=== PATIENT | female | born 1990 | race Caucasian/White ===

== ENCOUNTER 2021-11-24 12:45 | Inpatient (IN) ==
--- NOTE | 2021-11-24 13:55 | History & Physical Report ---
Date of Service November 24, 2021 Assessment & Plan (1) : Plan: 31 y/o at 40 2/7 wga presents w/ ctx VSS, initial BPs elevated but checked during ctx, normal when not vilma Fetus cat 1 Contractions - some progression since , ctx seem spaced so will recheck in few hours and ambulate in b/w GBS neg History of Present Illness Chief Complaint: Contractions Primary Care Provider: Kelsie Desean 31 y/o at 40 2/7 wga presents w/ c/o ctx q3-5 min since around 930. Unsure if they are still the same frequency but still very painful. +FM; denies LOF, VB PNI: None Past FLUE CLEANER Hx: SAB x 3, G4 current q28-30d cycles 04/2021 neg cotest Denies hx STIs Allergies Allergy/AdvReac Type Severity Reaction Status Date / Time latex Allergy rash, Verified 11/22/21 10:27 itching Home Medications Medication Instructions Recorded Confirmed Type prenat.vits,jean-claude,hly-vlrm-tbyef PO 10/02/20 11/22/21 History Patient History Medical History History of chicken pox Surgical History S/P tonsillectomy and adenoidectomy Family History Mother Breast cancer Hyperchloremia Father Diabetes Denies family history of Ovarian cancer Colorectal cancer Social History Smoking Status: Never smoker Hx Alcohol Use: No Hx Substance Use: Yes Preferred Language: Portuguese Communication Ability: Effective Is/It Project Manager Required: No Beliefs That Will Affect Care: None marital status: marital status details: Jc Nunez (31) [phone] Current Living Situation: Spouse Current Living Situation Comment: lives with spouse, 2 dogs current occupational status: employed 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) Vital Signs (Past 12 Hours) Vital Signs Temp Pulse Resp BP 11/24/21 13:48 81 137/83 11/24/21 13:39 86 152/84 H 11/24/21 13:05 98.4 F 20 11/24/21 12:53 115 H 145/87 H Laboratory Results OB Labs: Blood Type O Positive 04/17/21 Antibody Screen NEGATIVE 04/17/21 Hemoglobin 12.5 g/dL (12.0-16.0) 08/30/21 Hematocrit 36.1 % (37-47) L 08/30/21 Mean Corpuscular Volume 87.2 fL (80-100) 04/17/21 Platelet Count 246 K/uL (130-400) 04/17/21 Rubella IgG Antibody Immune (Immune) 04/17/21 Rapid Plasma Reagin Nonreactive (Nonreactive) 04/17/21 Hepatitis B Surface Antigen Neg (Neg) 04/17/21 HIV (1&2) Ab and P24 Ag, 4th Gener Neg (Neg) 04/17/21 Glucose 1 Hour 50 gm Load 107 mg/dl (70-130) 08/30/21 OB Optional Labs: Chlamydia trachomatis RNA NOT DETECTED (NOT DETECTED) 04/17/21 Neisseria gonorrhoeae RNA NOT DETECTED (NOT DETECTED) 04/17/21 Thyroid Stimulating Hormone (TSH) 2.03 uIU/mL (0.30-4.50) 11/15/20 Labs Reviewed: declines AFP - sln declines genetics/cf/sma=--akh GBS neg Diagnostic Findings R lat/post plac Coding Level of Care Code None Diagnoses Z34.90
[2021-11-24] MEDS ORDERED: OXYTOCIN 30 UNITS/500 ML BAG IV PRN (15:22)
--- NOTE | 2021-11-24 15:26 | Labor Progress Brief Note ---
Date of Service November 24, 2021 Subjective Still rating ctx 05/26 Assessment & Plan (1) : Plan: 31 y/o at 40 2/7 wga presents w/ ctx VSS, initial BPs elevated but checked during ctx, normotensive now Fetus cat 1 Contractions - progression noted after 1.5 hrs, will admit for labor and obtain covid test GBS neg Epidural PRN Physical Exam Genitourinary: Manual OB Exam: + cervical dilation (4-5), + cervical effacement 70% and + station -2 OB Exam Monitor Tracing: + external FHT monitor used, + external uterine monitor used (q5-6) and + category I (135/mod/+accel/-decel) Results & Data ([facility]) Vital Signs (Past 12 Hours) Vital Signs Temp Pulse Resp BP 11/24/21 13:53 78 131/81 11/24/21 13:48 81 137/83 11/24/21 13:39 86 152/84 H 11/24/21 13:05 98.4 F 20 11/24/21 12:53 115 H 145/87 H Coding Level of Care Code None Diagnoses Z34.90
[2021-11-24 15:39] LABS: Hematocrit (blood only) 40.9 % (37-47); Hemoglobin 14.1 g/dL (12.0-16.0); Mean Corpuscular Hemoglobin 30.4 pg (25-34); Mean Corpuscular Hgb Conc 34.5 g/dL (32-36); Mean Corpuscular Volume 88.1 fL (80-100); Mean Platelet Volume 11.4 fL (7.4-10.4); Platelet Count 198 K/uL (130-400); RDW Coefficient of Variation 13.5 % (11.5-14.5); RDW Standard Deviation 43.1 fL (36.4-46.3); Red Blood Count 4.64 M/uL (4.2-5.4); White Blood Count 13.52 K/uL (4.8-10.8)
[2021-11-24] MEDS: LACTATED RINGER'S 1,000 ML IV PRN ×2 (17:42→20:30)
--- NOTE | 2021-11-24 17:42 | Labor Progress Brief Note ---
Date of Service November 24, 2021 Subjective Ctx more painful Assessment & Plan (1) : Plan: 31 y/o at 40 2/7 wga presents w/ ctx VSS, BPs mild during ctx again and pt notes she is very anxious. If continues, will get pet lab Fetus cat 1 Contractions - continued progression, now s/p arom. Continue expectant management GBS neg Epidural PRN Admission and Anticipated Discharge Date Admission Date: November 24, 2021 Physical Exam Genitourinary: Manual OB Exam: + cervical dilation 5 cm, + cervical effacement 70%, + station -1 and + amniotic fluid (AROM clear) OB Exam Monitor Tracing: + external FHT monitor used, + external uterine monitor used (q5-6) and + category I (135/mod/+accel/-decel) Results & Data ([facility]) Vital Signs (Past 12 Hours) Vital Signs Temp Pulse Resp BP 11/24/21 17:33 105 H 142/85 H 11/24/21 17:27 122 H 149/100 H 11/24/21 13:53 78 131/81 11/24/21 13:48 81 137/83 11/24/21 13:39 86 152/84 H 11/24/21 13:05 98.4 F 20 11/24/21 12:53 115 H 145/87 H Coding Level of Care Code None Diagnoses Z34.90
[2021-11-24] MEDS ORDERED: SODIUM CHLORIDE 0.9% INJ 10 ML VIAL ONE (18:19)
[2021-11-24] MEDS ORDERED: BUPIVACAINE 0.25% 30 ML VIAL ONE (18:19)
[2021-11-24] MEDS ORDERED: ePHEDrine sulfate 50 MG/ML AMP ONE (18:19)
[2021-11-24] MEDS ORDERED: fentaNYL citrate 100 MCG/2 ML VIAL ONE (18:20)
[2021-11-24] MEDS ORDERED: fentaNYL 2MCG/ML ROPIVACAINE 1.25MG/ML 100 ML BAG EPI ONE (18:20)
[2021-11-24] MEDS ORDERED: NALBUPHINE HCL INJ 10 MG/ML AMP IV PRN (18:25)
[2021-11-24] MEDS ORDERED: fentaNYL 2MCG/ML ROPIVACAINE 1.25MG/ML 100 ML BAG EPI PRN (18:25)
[2021-11-24] MEDS ORDERED: ONDANSETRON INJ 2 MG/ML 2 ML VIAL IV PRN (18:25)
[2021-11-24] MEDS ORDERED: NALOXONE HCL 0.4 MG/1 ML VIAL/CARP IV PRN (18:25)
[2021-11-24] MEDS ORDERED: NALOXONE HCL 1 MG in SODIUM CHLORIDE 0.9% 1000ML 1,000 ML IV PRN (18:25)
[2021-11-24] MEDS ORDERED: diphenhydrAMINE 50 MG/ML VIAL IV PRN (18:25)
[2021-11-24] MEDS ORDERED: ePHEDrine sulfate 50 MG/ML AMP IV PRN (18:25)
--- NOTE | 2021-11-24 18:25 | Anesthesiology Consultation ---
Date of Service November 24, 2021 Assessment & Plan (1) Encounter for pre-operative examination: Chart Review Chart Review: Acceptable Risk for Labor Epidural Consults Requested none ASA ASA2 Proposed Anesthesia Anesthesia Type: Labor Epidural Risk / Benefits Reviewed With: PT / POA / Parent / Guardian, Accepts Plan and Informed Consent Obtained History Height/Weight Height: 5 ft 6 in Weight: 82.1 kg Allergies Allergy/AdvReac Type Severity Reaction Status Date / Time latex Allergy rash, Verified 11/22/21 10:27 itching Medications Home Medications Medication Instructions Recorded Confirmed Last Taken prenat.vits,jean-claude,pbc-cbvq-eiqbp PO 10/02/20 11/22/21 Unknown Active Medications Generic Name Dose Route Start Last Admin Trade Name Freq PRN Reason Stop Dose Admin Lactated Ringer's 1,000 mls @ 125 mls/hr 11/24/21 15:22 11/24/21 17:42 Lr IV 11/26/21 15:21 125 mls/hr .Q8H PRN Administration L&D Protocol Protocol Past Medical History Medical History History of chicken pox Exercise / Class Metabolic Activity II 4-5 Yardwork/Stairs/Walk up hill Past Family History Family History Mother Breast cancer Hyperchloremia Father Diabetes Denies family history of Ovarian cancer Colorectal cancer Past Surgical History Surgical History S/P tonsillectomy and adenoidectomy Past Anesthesia History No Hx of Anesthesia Complications and No Family Hx of Anesthesia Complications History of PONV No Hx of PONV and No Hx of Motion Sickness Social History Smoking Status: Never smoker Hx Alcohol Use: No Hx Substance Use: Yes substance use type: does not use Physical Exam Vital Signs Last Vital Signs Temp 98.4 F 11/24/21 13:05 Pulse 105 H 11/24/21 17:33 Resp 20 11/24/21 13:05 BP 142/85 H 11/24/21 17:33 ENMT Mouth: no dentition abnormality Thyromental Distance: > or= 3.5 Finger Breadths Mallampati Class: II Neck normal visual inspection Respiratory normal respiratory effort Auscultation: lungs clear to auscultation bilaterally Cardiovascular Rate/Rhythm: regular rate and regular rhythm Testing Laboratory Results 11/24/21 15:30
--- NOTE | 2021-11-25 00:10 | Delivery Summary ---
Vaginal Delivery Summary Date of Service November 24, 2021 Vaginal Delivery Summary and 2nd Degree LAC PREOPERATIVE DIAGNOSIS: 1. Single intrauterine at 40 2/7 wga 2. Labor POSTOPERATIVE DIAGNOSIS: 1. Single intrauterine at 40 2/7 wga 2. Labor 3. Delivered PROCEDURE: 1. Normal spontaneous vaginal delivery. SURGEON: Kay Merritt MD ANESTHESIA: Epidural. ESTIMATED BLOOD LOSS: 300 mL FLUIDS: Continuous LR. URINE OUTPUT: None. COMPLICATIONS: None. CONDITION: Stable. INDICATIONS: 31 y/o at 40 2/7 wga presented with contractions increasing in frequency and intensity. Denied LOF, VB. On arrival she was 3-4 cm, after approximately 1 hour had made change to 4-5cm and was admitted. She underwent artificial rupture of membranes and received an epidural for pain control. She progressed to complete and desired to push. FINDINGS: A viable female , weight pending with Apgars of 8 and 9 at 1 and 5 minutes respectively. SPECIMEN: Cord blood OPERATIVE REPORT: The patient progressed to 10 cm, 100% effaced and +2 station, pushed over intact perineum with anesthesia to deliver a viable female , weight and Apgars as above. Head of delivered in MICKEY position. Loose nuchal cord was noted and delivered through. Body and shoulders were delivered without difficulty. was delivered to maternal abdomen and nursing staff. Delayed cord clamping was performed for 60 seconds. Cord was clamped and cut. Cord blood was obtained. Placenta delivered spontaneously intact with 3-vessel cord. IV oxytocin and fundal massage were given for excellent hemostasis. Vagina, cervix, perineum, and placenta were inspected. A second degree and right labial laceration were noted and repaired in the usual fashion using 3-0 and 4-0 vicryl respectively. Sponge and needle counts correct x2. No sponges were left behind. Mother and stable in immediate period. [facility] Vaginal Delivery Charge Vaginal Delivery Codes: 86801 global code for the antepartum, delivery, and post- Delivery Type Details: and 2nd Degree LAC
[2021-11-25] MEDS ORDERED: SUPERCREAM 0.870% 15 GM JAR EXT PRN (00:24)
[2021-11-25] MEDS ORDERED: BENZOCAINE 20% AER SPR 82.5 GM CAN EXT PRN (00:24)
[2021-11-25] MEDS ORDERED: ACETAMINOPHEN 325 MG TAB PO PRN (00:24)
[2021-11-25] MEDS ORDERED: OXYTOCIN 30 UNITS/500 ML BAG IV PRN (00:24)
[2021-11-25] MEDS ORDERED: HYDROCORTISONE ACETATE 25 MG SUPP PR PRN (00:24)
--- NOTE | 2021-11-25 00:25 | Anesthesia Procedure Note ---
Date of Service November 25, 2021 Anesthesia Post Epidural Note Vital Signs Vital Signs: Temp Pulse Resp BP Pulse Ox 36.6 C 79 18 162/72 H 98 11/24/21 22:12 11/25/21 00:22 11/24/21 23:15 11/25/21 00:22 11/24/21 23:59 Pain Intensity Lower Abdomen: Pain Intensity: 7 Notes Mental Status: alert / awake / arousable Nausea / Vomiting: adequately controlled Pain: adequately controlled Airway Patency, RR, SpO2: stable & adequate BP & HR: stable & adequate Hydration State: stable & adequate Neuraxial Anesthesia: was administered and sensory block is resolving Anesthetic Complications: no major complications apparent and Pt Satisfied with anesthetic care Epidural: Removed without complications and With tip intact
--- NOTE | 2021-11-25 07:55 | Obstetrical Progress Note ---
Date of Service November 25, 2021 Assessment & Plan (1) state: 31 yo PP1 from , doing well -Meeting all pp milestones. BPs were intermittently mild range yesterday but occurred during contractions, periods of high anxiety, or when pt had just moved on to the cuff and all normalized so did not feel labs indicated at that time and have been normal since. Will order labs if become elevated again -O+/rubella immune/ -f/u 6 weeks for appt, continue routine pp care Subjective Ambulation: ambulating normally Voiding: no voiding problems Passing Gas:: Yes Diet Tolerance:: regular diet Lochia:: Small Feeding Type:: breast feeding Pain well managed with medication Review of Systems Denies fevers, chills, n/v, MARIA, CP, SOB Physical Exam Constitutional WD/WN, vitals as above no acute distress Respiratory normal respiratory effort, lungs clear to auscultation Cardiovascular RRR, no murmur, no edema Gastrointestinal (Abdomen) Percussion/Palpation: abdomen soft; abdomen nontender fundus firm at umbilicus and NT Musculoskeletal BLE symmetric, nonerythematous, nontender Results & Data ([facility]) Vital Signs (Past 12 Hours) Vital Signs Temp Pulse Pulse Resp BP BP Pulse Ox 11/25/21 03:10 98.2 F 87 16 123/80 11/25/21 02:09 90 128/65 11/25/21 02:05 18 11/25/21 02:02 88 123/66 11/25/21 01:52 93 H 127/67 11/25/21 01:42 93 H 124/64 11/25/21 01:35 18 11/25/21 01:32 97 H 136/75 11/25/21 01:22 98 H 132/73 11/25/21 01:09 90 135/69 11/25/21 01:05 18 11/25/21 01:02 89 133/66 11/25/21 00:52 99 H 147/74 H 11/25/21 00:50 18 11/25/21 00:42 98 H 140/71 11/25/21 00:39 81 134/63 11/25/21 00:35 18 11/25/21 00:22 79 162/72 H 11/25/21 00:20 18 11/25/21 00:12 92 H 145/67 H 11/25/21 00:05 98.6 F 18 11/25/21 00:02 92 H 145/72 H 11/24/21 23:59 96 H 98 11/24/21 23:54 93 H 97 11/24/21 23:53 95 H 140/67 11/24/21 23:49 93 H 96 11/24/21 23:44 106 H 96 11/24/21 23:39 105 H 96 11/24/21 23:35 116 H 88 L 11/24/21 23:34 112 H 97 11/24/21 23:29 131 H 97 11/24/21 23:24 116 H 97 11/24/21 23:23 129 H 140/63 11/24/21 23:19 147 H 98 11/24/21 23:15 18 11/24/21 23:14 120 H 150/88 H 11/24/21 23:13 122 H 97 11/24/21 23:08 105 H 96 11/24/21 23:03 84 94 11/24/21 22:58 77 96 11/24/21 22:54 83 94 11/24/21 22:53 85 116/78 95 11/24/21 22:48 81 94 11/24/21 22:46 81 94 11/24/21 22:45 18 11/24/21 22:43 90 94 11/24/21 22:40 79 94 11/24/21 22:38 86 130/71 96 11/24/21 22:33 81 95 11/24/21 22:32 79 94 11/24/21 22:28 74 96 11/24/21 22:25 75 94 11/24/21 22:24 79 115/60 11/24/21 22:23 83 96 11/24/21 22:18 78 96 11/24/21 22:13 71 96 11/24/21 22:12 97.9 F 18 11/24/21 22:08 89 112/60 95 11/24/21 22:03 67 96 11/24/21 21:58 78 97 11/24/21 21:54 74 143/68 H 11/24/21 21:53 75 98 11/24/21 21:50 18 11/24/21 21:48 72 98 11/24/21 21:43 78 97 11/24/21 21:39 77 133/78 11/24/21 21:38 80 97 11/24/21 21:33 77 97 11/24/21 21:31 18 11/24/21 21:28 81 96 11/24/21 21:24 66 122/65 11/24/21 21:23 73 97 11/24/21 21:18 67 96 11/24/21 21:13 85 97 11/24/21 21:10 83 125/72 11/24/21 21:08 104 H 99 11/24/21 21:03 74 97 11/24/21 21:00 97.9 F 18 11/24/21 20:58 81 98 11/24/21 20:53 72 134/75 98 11/24/21 20:48 77 98 11/24/21 20:43 74 98 11/24/21 20:38 75 134/81 98 11/24/21 20:33 79 98 11/24/21 20:28 83 99 11/24/21 20:24 75 18 135/86 11/24/21 20:23 80 133/76 98 11/24/21 20:18 86 98 11/24/21 20:13 79 98 11/24/21 20:09 88 145/88 H 11/24/21 20:08 92 H 96 11/24/21 20:03 78 96 11/24/21 19:59 18 11/24/21 19:58 83 97 11/24/21 19:54 76 144/78 H
[2021-11-25 07:56] LABS: Hematocrit (blood only) 36.6 % (37-47); Hemoglobin 12.5 g/dL (12.0-16.0); Mean Corpuscular Hemoglobin 30.3 pg (25-34); Mean Corpuscular Hgb Conc 34.2 g/dL (32-36); Mean Corpuscular Volume 88.6 fL (80-100); Mean Platelet Volume 11.3 fL (7.4-10.4); Platelet Count 167 K/uL (130-400); RDW Coefficient of Variation 13.5 % (11.5-14.5); RDW Standard Deviation 43.7 fL (36.4-46.3); Red Blood Count 4.13 M/uL (4.2-5.4); White Blood Count 16.44 K/uL (4.8-10.8)
[2021-11-25] MEDS: IBUPROFEN 600 MG TAB PO PRN ×3 (09:35→23:15)
[2021-11-25] MEDS: PRENATAL VITAMIN 1 TAB PO SCH (09:35)
[2021-11-25] MEDS: DOCUSATE SODIUM 100 MG CAP PO SCH ×2 (09:35→21:37)
--- NOTE | 2021-11-26 06:53 | Obstetrical Progress Note ---
Date of Service <Sarah Mojica MD - Last Filed: 11/26/21 06:53> November 26, 2021 Assessment & Plan <Sarah Mojica MD - Last Filed: 11/26/21 06:53> (1) Encounter for care and examination after delivery: PPD 2: stable, routine management * patient voiding and ambulating without difficulty * pain well controlled on analgesia * tolerating regular diet * * anticipate d/c today * 6-week OB outpatient follow-up <Kay Merritt MD - Last Filed: 11/26/21 07:24> (1) Encounter for care and examination after delivery: Subjective <Sarah Mojica MD - Last Filed: 11/26/21 06:53> Sindi is a 31 year-old [id number] who is now PPD 2 following spontaneous vaginal delivery at 40.2 weeks. Reports feeling well overall this morning. 4/10 pain well managed on analgesics. Voiding +. Tolerating meals well and able to ambulate without assistance. Much improved lochia this morning. . Review of Systems Denies fever, chills, sweats Denies shortness of breath, difficulty breathing, chest pain, palpitations, chest pressure. Denies breast pain. Denies dysuria. Denies headache or changes in vision Physical Exam <Sarah Mojica MD - Last Filed: 11/26/21 06:53> General: Alert, oriented. No acute distress. Cardiac: Regular rate and rhythm, no murmurs/rubs/gallops. Respiratory: Clear to auscultation bilaterally a/p, no wheezes/rales/rhonchi. No increased work of breathing. Symmetrical chest rise. No respiratory distress. Abdomen: Soft, nontender, nondistended. Bowel sounds present. Uterus: Uterine fundus firm, palpable 2 cm below umbilicus. Lower Extremities: No lower extremity edema or swelling. No deep calf pain. Naz's negative bilaterally.. Results & Data ([facility]) <Sarah Mojica MD - Last Filed: 11/26/21 06:53> Vital Signs (Past 12 Hours) Vital Signs Temp Pulse Resp BP Pulse Ox 11/25/21 23:15 36.9 C 83 20 11/25/21 19:25 36.9 C 89 18 131/71 96 <Kay Merritt MD - Last Filed: 11/26/21 07:24> Co-Signing Physician Notes Resident Physician Supervision Note: I interviewed and examined the patient. Discussed with Dr. Mojica and agree with findings and plan as documented in the note. Any exceptions or clarifications are listed here: PP2 s/p , doing well. VSS, benign exam. Stable for d/c home today Documented By: Kay Merritt MD Resident Activity Tracking <Sarah Mojica MD - Last Filed: 11/26/21 06:53> Resident Involvement: Resident Care Provided Care Provided: OB Delivery
[2021-11-26] MEDS: PRENATAL VITAMIN 1 TAB PO SCH (07:54)
[2021-11-26] MEDS: DOCUSATE SODIUM 100 MG CAP PO SCH (07:54)
[2021-11-26] MEDS ORDERED: bisacodyL 5 MG TABEC PO SCH (20:00)
== END 2021-11-26 10:30 | disposition home or self-care (01) | DRG 807 ==
LOC: OPB 12:45 → 4S1 12:47 → 4S2 11-25 02:54

== ENCOUNTER 2023-12-12 03:39 | Inpatient (IN) ==
[2023-12-12] MEDS ORDERED: OXYTOCIN 30 UNITS/NSS 30 UNITS/500 ML BAG IV PRN ×2 (04:19→10:08)
[2023-12-12] MEDS ORDERED: LIDOCAINE 1% LOCAL 20 ML VIAL INFIL PRN (04:19)
--- NOTE | 2023-12-12 04:27 | History & Physical Report ---
Date of Service December 12, 2023 Assessment & Plan (1) Normal labor: (2) Elevated blood pressure affecting in third trimester, antepartum: Plan admit for labor. Blood pressure elevated so will need to monitor closely, check labs. no s/s of pet. first two elevated and then 133/83. expectant management for now. pitocin/arom as indicated epidural on demand. Admission and Anticipated Discharge Date Admission Date: December 12, 2023 History of Present Illness Chief Complaint: contractions Primary Care Provider: Kelsie Anton Patient is a [id number] with iup at 39 6/7 weeks who presents to labor and delivery complaining of contractions q 3-4, lasting a minute . no lof/vb. +fm. Patient had elevated blood pressure on admission but has no agudelo/vision changes, n/v/ruq pain or other s/s of pet. and Delivery Plans IOL 12/24 if needed OB Labs: Blood Type O Positive 05/05/23 Antibody Screen NEGATIVE 05/05/23 Hemoglobin 12.6 g/dl (12.0-16.0) 09/22/23 Hematocrit 35.4 % (37.0-47.0) L 09/22/23 Mean Corpuscular Volume 84.1 fL (80.0-100.0) 05/05/23 Platelet Count 226 K/uL (130-400) 05/05/23 Rubella IgG Antibody Immune (Immune) 05/05/23 Rapid Plasma Reagin Nonreactive (Nonreactive) 05/05/23 Hepatitis B Surface Antigen Neg (Neg) 04/17/21 Hepatitis B Surface Antigen. NON-REACTIVE (NON-REACTIVE) 05/05/23 Hepatitis C Antibody (EIA) NON-REACTIVE (NON-REACTIVE) 05/05/23 HIV (1&2) Ab and P24 Ag, 4th Gener Neg (Neg) 04/17/21 HIV (1&2) Ag and Ab Confirmation NON-REACTIVE (NON-REACTIVE) 05/05/23 Glucose 1 Hour 50 gm Load 131 mg/dl (70-130) H 09/22/23 OB Optional Labs: Chlamydia trachomatis RNA Not Detected (NotDetected) 05/05/23 Neisseria gonorrhoeae RNA Not Detected (NotDetected) 05/05/23 Thyroid Stimulating Hormone (TSH) 2.03 uIU/mL (0.30-4.50) 11/15/20 Labs Reviewed: -declines cfdna, cf/sma - sln Declines quad screen--mln 28 week 2 hr gtt wnl.--akh gbs neg Allergies Allergy/AdvReac Type Severity Reaction Status Date / Time latex Allergy rash, Verified 12/08/23 09:37 itching Home Medications Medication Instructions Recorded Confirmed Type prenat.vits,jean-claude,wxs-aiaa-ckkrc 1 tab PO DAILY 04/28/23 12/08/23 History sertraline [Zoloft] PO 04/28/23 12/08/23 History Patient History Medical History History of chicken pox Complete Surgical History S/P tonsillectomy and adenoidectomy Family History Mother Breast cancer Hyperchloremia Father Diabetes Denies family history of Ovarian cancer Colorectal cancer Social History Smoking Status: Never smoker Do You Dip or Chew Tobacco: No; Hx Alcohol Use: No Hx Substance Use: Yes Preferred Language: Tamazight Communication Ability: Effective Tour Driver Required: No Beliefs That Will Affect Care: None marital status: marital status details: Jc Nunez (33) [phone] Current Living Situation: Spouse and Family Current Living Situation Comment: lives with spouse, child, 2 dogs current occupational status: employed 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 Date GA wks Lbr Lgth wt Sex Type del Anes Place Del Prov ? Comment 12/01/19 Aborted-Spontaneous 05/30/20 Aborted-Spontaneous 10/05/20 Aborted-Spontaneous 11/24/21 40 6lb 1.1oz F Epi dural [facility] Dr. Merritt No [employer] History noncontributory Physical Exam Constitutional: WD/WN, vitals as above Cardiovascular: Extremities: + edema (tr); no calf tenderness Gastrointestinal (Abdomen): soft, gravid, nt Psychiatric: A+Ox3, euthymic affect Genitourinary: cx--- per nursing. toco--q5min efm--140s with mod variability, small accels, no decels Results & Data Vital Signs (Past 12 Hours) Vital Signs Pulse BP 12/12/23 03:58 79 187/83 H 12/12/23 03:57 95 H 195/93 H Coding Level of Care Code None Diagnoses Normal labor O80; Z37.9 Elevated blood pressure affecting in third trimester, antepartum O16.3
[2023-12-12 04:52] LABS: Hematocrit (blood only) 39.8 % (37.0-47.0); Hemoglobin 13.6 g/dl (12.0-16.0); Mean Corpuscular Hemoglobin 29.3 pg (25.0-34.0); Mean Corpuscular Hgb Conc 34.2 g/dL (32.0-36.0); Mean Corpuscular Volume 85.8 fL (80.0-100.0); Mean Platelet Volume 11.4 fL (9.4-12.4); Platelet Count 165 K/uL (130-400); RDW Coefficient of Variation 13.3 % (11.5-14.5); RDW Standard Deviation 41.2 fL (36.4-46.3); Red Blood Count 4.64 M/uL (4.20-5.40); White Blood Count 11.62 K/ul (4.8-10.8)
[2023-12-12 05:09] LABS: Albumin Globulin Ratio 1.3 (0.9-2); Albumin Level 3.6 gm/dl (3.4-5.0); BUN Creatinine Ratio 15.8 (10-20); Bilirubin,Total 0.4 mg/dl (0.2-1.0); Calcium 9.9 mg/dl (8.6-10.3); Creatinine Clr Calc Pharmacy 117.8 ml/min; Est GFR (African American) 120.3 ml/min; Est GFR (Non-African American) 103.8 ml/min; Globulin 2.8 gm/dl (2.5-4.0); Potassium 3.2 mmol/L (3.5-5.1); Total Protein 6.4 gm/dl (6.0-8.3)
[2023-12-12] MEDS: LACTATED RINGER'S 1,000 ML IV PRN ×3 (06:04→09:18)
[2023-12-12] MEDS ORDERED: ePHEDrine sulfate 50 MG/ML AMP ONE (06:57)
[2023-12-12] MEDS ORDERED: SODIUM CHLORIDE 0.9% PF INJ 10 ML VIAL ONE (06:57)
[2023-12-12] MEDS ORDERED: fentaNYL citrate PF 100 MCG/2 ML VIAL ONE (06:57)
[2023-12-12] MEDS ORDERED: BUPIVACAINE 0.25% PF 30 ML VIAL ONE (06:58)
[2023-12-12] MEDS ORDERED: LIDOCAINE 2%/EPINEPHRINE 1:200,000 20 ML PF ONE (06:58)
[2023-12-12] MEDS ORDERED: fentANYL 2 MCG/ML BUPIVacaine 0.125%-NSS 100ML BAG ONE (06:58)
[2023-12-12] MEDS ORDERED: LIDOCAINE 2%/EPINEPHRINE 1:200,000 20 ML PF EPI STA (07:22)
[2023-12-12] MEDS ORDERED: SODIUM CHLORIDE 0.9% PF INJ 10 ML VIAL EPI STA (07:22)
[2023-12-12] MEDS ORDERED: LIDOCAINE 2% MPF LOCAL 5 ML VIAL EPI PRN (07:22)
[2023-12-12] MEDS ORDERED: NALOXONE HCL 0.4 MG/1 ML VIAL/CARP IV PRN (07:22)
[2023-12-12] MEDS ORDERED: diphenhydrAMINE 50 MG/ML VIAL IV PRN (07:22)
[2023-12-12] MEDS ORDERED: fentaNYL citrate PF 100 MCG/2 ML VIAL EPI STA (07:22)
[2023-12-12] MEDS ORDERED: BUPIVACAINE 0.25% PF 30 ML VIAL EPI STA (07:22)
[2023-12-12] MEDS ORDERED: BUPIVACAINE 0.25% PF 30 ML VIAL EPI PRN (07:22)
[2023-12-12] MEDS ORDERED: fentaNYL citrate PF 100 MCG/2 ML VIAL EPI PRN (07:22)
[2023-12-12] MEDS ORDERED: ROPIVACAINE 0.5% PF 5 MG/ML 20 ML VIAL EPI PRN (07:22)
[2023-12-12] MEDS ORDERED: fentANYL 2 MCG/ML BUPIVacaine 0.125%-NSS 100ML BAG EPI PRN (07:22)
[2023-12-12] MEDS ORDERED: SODIUM CHLORIDE 0.9% PF INJ 10 ML VIAL EPI PRN (07:22)
[2023-12-12] MEDS ORDERED: NALBUPHINE HCL 5 MG in SYRINGE 0 ML IV PRN (07:22)
[2023-12-12] MEDS ORDERED: ONDANSETRON INJ 2 MG/ML 2 ML VIAL IV PRN (07:22)
[2023-12-12] MEDS ORDERED: NALOXONE HCL 1 MG in SODIUM CHLORIDE 0.9% 1,000 ML IV PRN (07:22)
--- NOTE | 2023-12-12 07:22 | Anesthesiology Consultation ---
Date of Service December 12, 2023 Assessment & Plan ASA ASA2 Proposed Anesthesia Anesthesia Type: Labor Epidural Risk / Benefits Reviewed With: PT / POA / Parent / Guardian, Accepts Plan and Informed Consent Obtained History Height/Weight Height: 5 ft 6 in Weight: 86.636 kg Allergies Allergy/AdvReac Type Severity Reaction Status Date / Time latex Allergy rash, Verified 12/08/23 09:37 itching Medications Home Medications Medication Instructions Recorded Confirmed Last Taken prenat.vits,jean-claude,jvf-oeii-blvxy 1 tab PO DAILY 04/28/23 12/12/23 12/11/23 08:00 sertraline [Zoloft] 25 mg PO DAILY 04/28/23 12/12/23 12/11/23 08:00 Active Medications Generic Name Dose Route Start Last Admin Trade Name Freq PRN Reason Stop Dose Admin Lactated Ringer's 1,000 mls @ 125 mls/hr 12/12/23 04:19 12/12/23 06:04 Lr IV 12/14/23 04:18 999 mls/hr .Q8H PRN Administration L&D Protocol Protocol Past Medical History Medical History History of chicken pox Complete Exercise / Class Metabolic Activity II 4-5 Yardwork/Stairs/Walk up hill Past Family History Family History Mother Breast cancer Hyperchloremia Father Diabetes Denies family history of Ovarian cancer Colorectal cancer Past Surgical History Surgical History S/P tonsillectomy and adenoidectomy Past Anesthesia History No Hx of Anesthesia Complications and No Family Hx of Anesthesia Complications History of PONV No Hx of PONV and No Hx of Motion Sickness Social History Smoking Status: Never smoker Do You Dip or Chew Tobacco: No Hx Alcohol Use: No Hx Substance Use: No substance use type: does not use Review of Systems denies fever/cough/ colds/ chest pain/ SOB/ ROLANDO denies ROLANDO Physical Exam Vital Signs Last Vital Signs Temp 37.1 C 12/12/23 04:14 Pulse 73 12/12/23 07:19 Resp 18 12/12/23 04:14 BP 133/84 12/12/23 07:01 Pulse Ox 94 01/26/24 07:19 ENMT Mouth: no TMJ abnormality and no dentition abnormality Thyromental Distance: > or= 3.5 Finger Breadths Mallampati Class: II Neck neck extension not limited Respiratory normal respiratory effort; no respiratory distress Auscultation: lungs clear to auscultation bilaterally Cardiovascular Rate/Rhythm: regular rate and regular rhythm Neurologic moves all extremities Psychiatric Orientation: alert and oriented x 3 Testing Laboratory Results 12/12/23 04:37 12/12/23 04:38
[2023-12-12] MEDS: ePHEDrine sulfate 50 MG/ML AMP IV PRN ×2 (07:58→08:27)
--- NOTE | 2023-12-12 10:08 | Labor Progress Brief Note ---
Date of Service December 12, 2023 Subjective pt doing well. comfortable with epidural. ready for arom. Assessment & Plan (1) Normal labor: (2) Thin meconium stained amniotic fluid: Plan will see how arom helps labor pattern. if needed will add pit aug. fhts categ 1. Admission and Anticipated Discharge Date Admission Date: December 12, 2023 Physical Exam Constitutional: WD/WN, vitals as above Genitourinary: Manual OB Exam: + cervical dilation 7 cm, + cervical effacement (75%), + station 0 and + amniotic fluid (arom) meconium OB Exam Monitor Tracing: + external FHT monitor used, + external uterine monitor used (q3-5), + category I and + normal FHT variability Results & Data Vital Signs (Past 12 Hours) Vital Signs Temp Pulse Resp BP Pulse Ox 12/12/23 10:02 76 97 12/12/23 09:57 73 100 12/12/23 09:52 69 99 12/12/23 09:49 83 108/64 12/12/23 09:47 72 100 12/12/23 09:43 85 92 12/12/23 09:42 88 94 12/12/23 09:37 97 H 100 12/12/23 09:33 67 115/64 12/12/23 09:32 67 98 12/12/23 09:27 85 99 12/12/23 09:22 74 100 12/12/23 09:17 75 100 12/12/23 09:14 67 116/61 12/12/23 09:12 68 99 12/12/23 09:08 83 118/64 12/12/23 09:07 84 98 12/12/23 09:03 81 115/59 L 12/12/23 09:02 87 100 12/12/23 09:00 18 12/12/23 09:00 18 12/12/23 08:59 70 119/59 L 12/12/23 08:57 78 99 12/12/23 08:53 74 121/67 12/12/23 08:52 74 99 12/12/23 08:49 67 118/55 L 12/12/23 08:47 66 99 12/12/23 08:43 99 H 109/59 L 12/12/23 08:42 101 H 100 12/12/23 08:38 93 H 110/62 12/12/23 08:37 109 H 98 12/12/23 08:33 101 H 110/63 12/12/23 08:32 108 H 100 12/12/23 08:30 18 12/12/23 08:30 18 12/12/23 08:28 106 H 113/62 12/12/23 08:27 100 12/12/23 08:27 112 H 12/12/23 08:27 88 111/62 12/12/23 08:24 88 76/48 L 12/12/23 08:22 93 H 98 12/12/23 08:18 103 H 97/54 L 12/12/23 08:17 110 H 95 12/12/23 08:14 101 H 94 12/12/23 08:13 91 H 110/63 12/12/23 08:12 104 H 99 12/12/23 08:10 94 H 115/66 12/12/23 08:08 103 H 107/59 L 12/12/23 08:07 109 H 96 12/12/23 08:04 109 H 102/57 L 12/12/23 08:02 112 H 96 12/12/23 08:00 18 12/12/23 08:00 18 12/12/23 07:58 113 H 121/70 12/12/23 07:57 103 H 96 12/12/23 07:56 100 H 124/70 12/12/23 07:55 20 12/12/23 07:55 20 12/12/23 07:54 88 135/74 12/12/23 07:52 95 12/12/23 07:52 86 12/12/23 07:52 84 128/69 12/12/23 07:51 80 93 12/12/23 07:50 98 H 20 140/76 12/12/23 07:48 75 102/58 L 12/12/23 07:47 76 97 12/12/23 07:46 83 85/53 L 12/12/23 07:45 20 12/12/23 07:45 20 12/12/23 07:44 94 H 96/60 L 12/12/23 07:42 113 H 126/73 95 12/12/23 07:40 93 H 20 136/84 12/12/23 07:38 78 132/84 12/12/23 07:37 69 18 96 12/12/23 07:32 84 96 12/12/23 07:27 96 H 95 12/12/23 07:22 77 97 12/12/23 07:19 73 94 12/12/23 07:17 98.4 F 68 20 97 12/12/23 07:12 80 96 12/12/23 07:07 73 96 12/12/23 07:02 82 97 12/12/23 07:01 68 133/84 12/12/23 04:49 69 143/83 H 12/12/23 04:30 83 133/83 12/12/23 04:14 98.8 F 18 12/12/23 03:58 79 187/83 H 12/12/23 03:57 95 H 195/93 H Coding Level of Care Code None Diagnoses Normal labor O80; Z37.9 Thin meconium stained amniotic fluid P96.83
--- NOTE | 2023-12-12 14:41 | Delivery Summary ---
Vaginal Delivery Summary Date of Service December 12, 2023 Vaginal Delivery Summary and 2nd Degree LAC PREOPERATIVE DIAGNOSIS: 1. Single intrauterine at 39 6/7 wga 2. Labor POSTOPERATIVE DIAGNOSIS: 1. Single intrauterine at 39 6/7 wga 2. Labor 3. Delivered PROCEDURE: 1. Normal spontaneous vaginal delivery. SURGEON: Kay Merritt MD ANESTHESIA: Epidural. ESTIMATED BLOOD LOSS: 300 mL FLUIDS: Continuous LR. URINE OUTPUT: None. COMPLICATIONS: None. CONDITION: Stable. INDICATIONS: 33 yo at 39 6/7 wga presented with contractions increasing in frequency and intensity and found to be 3-4cm on arrival and admitted. She received an epidural and underwent arom. At 7cm, pitocin was started to help contraction strength and she quickly progressed to complete. FINDINGS: A viable female , weight pending with Apgars of 8 and 9 at 1 and 5 minutes respectively. SPECIMEN: Cord blood OPERATIVE REPORT: The patient progressed to 10 cm, 100% effaced and +2 station, pushed over intact perineum with anesthesia to deliver a viable female infant, weight and Apgars as above. Head of delivered in TANNA position. No nuchal cord was present. Body and shoulders were delivered without difficulty. was delivered to maternal abdomen and nursing staff. Delayed cord clamping was performed for 60 seconds. Cord was clamped and cut. Cord blood was obtained. Placenta delivered spontaneously intact with 3-vessel cord. IV oxytocin and fundal massage were given for excellent hemostasis. Vagina, cervix, perineum, and placenta were inspected. A second degree laceration was noted and repaired using 3-0 vicryl in the usual fashion, there was excellent hemostasis. Sponge and needle counts correct x2. No sponges were left behind. Mother and stable in immediate period. [facility] [place] Vaginal Delivery Charge Vaginal Delivery Codes: 84246 global code for the antepartum, delivery, and post- Delivery Type Details: and 2nd Degree LAC
[2023-12-12] MEDS ORDERED: ACETAMINOPHEN 325 MG TAB PO PRN (15:05)
[2023-12-12] MEDS ORDERED: BENZOCAINE 20% SPRY 85 APPLN/85 GM CAN EXT PRN (15:05)
[2023-12-12] MEDS ORDERED: HYDROCORTISONE ACETATE 25 MG SUPP PR PRN (15:05)
[2023-12-12] MEDS ORDERED: DIPHTHER/TETAN/PERTUS Vaccine (Tdap, Adol/Adult) 0.5mL IM ONE (15:05)
[2023-12-12] MEDS ORDERED: bisacodyL 10 MG SUPP PR PRN (15:05)
--- NOTE | 2023-12-12 15:17 | Anesthesia Procedure Note ---
Date of Service December 12, 2023 Anesthesia Post Epidural Note Vital Signs Vital Signs: Temp Pulse Resp BP Pulse Ox 36.7 C 75 20 121/64 97 12/12/23 13:00 12/12/23 15:03 12/12/23 14:50 12/12/23 15:03 12/12/23 14:42 Notes Mental Status: alert / awake / arousable and participated in evaluation Nausea / Vomiting: adequately controlled Pain: adequately controlled Airway Patency, RR, SpO2: stable & adequate BP & HR: stable & adequate Hydration State: stable & adequate Neuraxial Anesthesia: was administered and sensory block resolved Anesthetic Complications: no major complications apparent and Pt Satisfied with anesthetic care Epidural: Removed without complications and With tip intact
[2023-12-12] MEDS: IBUPROFEN 600 MG TAB PO PRN ×2 (16:31→21:49)
[2023-12-12] MEDS: DOCUSATE SODIUM 100 MG CAP PO SCH (20:32)
[2023-12-13] MEDS: OXYTOCIN 30 UNITS/NSS 30 UNITS/500 ML BAG IV SCH (00:15)
[2023-12-13] MEDS: IBUPROFEN 600 MG TAB PO PRN ×2 (02:55→08:43)
--- NOTE | 2023-12-13 06:28 | Obstetrical Progress Note ---
Date of Service <Dorethamiguel angel George DO - Last Filed: 12/13/23 06:32> December 13, 2023 Assessment & Plan <Doretha Julio Cesar George DO - Last Filed: 12/13/23 06:32> (1) care following vaginal delivery: Plan Feels well today. Eating well, voiding well, ambulating well. Pain well controlled with prn oral meds. Routine care; OOB, ambulation, continue regular diet. Anticipate discharge 24-48 hours after , likely today. After discharge will have 6 week follow-up with Dr. Merritt. <Kay Merritt MD - Last Filed: 12/13/23 07:33> (1) care following vaginal delivery: Subjective <Dorethamiguel angel Georeg DO - Last Filed: 12/13/23 06:32> Pt is a 33 y/o female who is PPD#1 following at 39 weeks. Pt states that she is feeling good today. She states that her cramping is overall mild and her bleeding is improving. She is breast feeding and it is going well. She is ambulating, tolerating oral intake, and voiding appropriately. No questions or complaints at this time. Wishes to go home today. Constitutional: no fever, no chills or no sweats Respiratory: no dyspnea Cardiovascular: no chest pain or no palpitations Breast: no breast pain Genitourinary (female): no dysuria Neurologic: no headache(s) no changes in vision, no headaches Physical Exam <Dorethamiguel angel George DO - Last Filed: 12/13/23 06:32> General: Alert, oriented. No acute distress. Cardiac: Regular rate and rhythm, no murmurs, rubs, or gallops. Respiratory: Clear to auscultation bilaterally, no wheezes/rales/rhonchi. No increased work of breathing. Symmetrical chest rise. No respiratory distress. Abdomen: Soft, nontender, nondistended. Bowel sounds present. Uterus: Uterine fundus firm, palpable below the umbilicus. Lower extremities: No lower extremity edema or swelling. No deep calf pain. Results & Data <Doretha George DO - Last Filed: 12/13/23 06:32> Vital Signs (Past 12 Hours) Vital Signs Temp Pulse Resp BP Pulse Ox O2 Del Method 12/13/23 02:53 36.7 C 73 18 122/81 97 Room Air 12/12/23 22:44 36.8 C 64 18 129/81 97 Room Air 12/12/23 19:13 36.7 C 97 H 18 128/82 97 Room Air Supervising Physician <Kay Merritt MD - Last Filed: 12/13/23 07:33> Co-Signing Physician Notes Resident Physician Supervision Note: I interviewed and examined the patient. Discussed with Dr. Monaco and agree with findings and plan as documented in the note. Any exceptions or clarifications are listed here: PP1 s/p , doing well. VSS, exam benign and wnl. Desires dc home, ok to do at 24 hrs Documented By: Kay Merritt MD Resident Activity Tracking <Doretha George DO - Last Filed: 12/13/23 06:32> Resident Involvement: Resident Care Provided Care Provided: OB Delivery
[2023-12-13] MEDS ORDERED: PRENATAL VITAMIN 1 TAB PO SCH (08:00)
[2023-12-13] MEDS: DOCUSATE SODIUM 100 MG CAP PO SCH (08:42)
[2023-12-13] MEDS ORDERED: SERTRALINE HCL 50 MG TABLET PO SCH (09:00)
[2023-12-13] MEDS ORDERED: bisacodyL 5 MG TABEC PO SCH (20:00)
== END 2023-12-13 14:50 | disposition home or self-care (01) | DRG 807 ==
LOC: OPB 03:39 → 4S1 03:41 → 4E2 17:44